=== PATIENT | male | born 1940 | race Caucasian/White ===

== ENCOUNTER 2017-06-02 07:58 | Inpatient (IN) | payer BC, OTHER ==
[~2017-06-02] VITALS: Ht 172.7 cm; Wt 126.6 kg
[2017-06-02 08:01] VITALS: BP 139/98
[2017-06-02] MEDS ORDERED: MECL-322 PO (08:12)
[2017-06-02] MEDS ORDERED: OMEP20TC12 PO (08:12)
[2017-06-02] MEDS ORDERED: TAMS0.4C96 PO (08:12)
[2017-06-02] MEDS ORDERED: AMLO-27 PO (08:12)
[2017-06-02] MEDS ORDERED: LISI40TA4 PO (08:12)
[2017-06-02] MEDS ORDERED: ATOR40TA PO (08:12)
[2017-06-02] MEDS ORDERED: METF500T PO ×2 (08:12→15:28)
[2017-06-02] MEDS ORDERED: GLIP5TAB4 PO (08:12)
[2017-06-02] MEDS ORDERED: LEVE1000 PO (08:12)
--- NOTE | 2017-06-02 08:18 | NUR ---
Patient wheelchair assisted to bed 10 at this time.
--- NOTE | 2017-06-02 08:20 | NUR ---
76m bib nephew with c/o weakness to bl legs and "disorientation" that started this am; Per nephew, pt was found on fall this am, altered. Now per mukund, pt is at neuro baseline. 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 Pt is aox4, with unsteady gait. Pt denies any cp, sob, or pain at this time. RR are even and tachypneic. Pt also reports of fever, congestion, with productive cough x 4-5 days. nad at this time. pulse ox=97% on ra. NSR on CM. Pt positioned for comfort, bed down. Will continue to monitor.
[2017-06-02] MEDS ORDERED: NACL 0.9% 1,000 ML IV SCH (08:38)
[2017-06-02 09:58] LABS: BASOPHILS # (AUTO) 0.1 K/uL (0.00-0.22); BASOPHILS % (AUTO) 1.4 % (0.0-2.0); EOSINOPHILS # (AUTO) 0.1 K/uL (0-0.4); EOSINOPHILS % (AUTO) 0.8 % (0.0-4.0); HEMATOCRIT 46.9 % (36-52); HEMOGLOBIN 15.9 g/dL (12.0-18.0); LYMPHOCYTES # (AUTO) 0.4 K/uL (2.0-11.5); MEAN CORPUSCULAR HEMOGLOBIN 30 pg (27-31); MEAN CORPUSCULAR HGB CONC 34 g/dL (33-37); MEAN CORPUSCULAR VOLUME 90 fL (80-94); MONOCYTES # (AUTO) 1.5 K/uL (0.8-1.0); MONOCYTES % (AUTO) 17.3 % (1.7-9.3); NEUTROPHILS # (AUTO) 6.7 K/uL (1.8-7.7); NEUTROPHILS % (AUTO) 75.5 % (42.2-75.2); PLATELET COUNT (AUTO) 182 K/uL (140-450); RED BLOOD CELL COUNT(AUTO) 5.21 MIL/uL (4.20-6.10); RED CELL DISTRIBUTION WIDTH 13.3 % (11.6-13.7)
--- NOTE | 2017-06-02 10:01 | NUR ---
pt laying supine supine in [facility] with no complaints. pt denies any cp, sob, or pain at this time. nad. vs. will continue to monitor.
[2017-06-02 10:13] LABS: ANION GAP 14.8 (8-16); CHLORIDE 103 mmol/L (98-107); CREATININE 1.3 mg/dL (0.7-1.3); GLUCOSE 156 mg/dL (74-106); POTASSIUM 3.8 mmol/L (3.5-5.1); SODIUM SERUM 138 mmol/L (136-145); UREA NITROGEN, BLOOD 33 mg/dL (7-18)
[2017-06-02 10:15] LABS: WHITE BLOOD COUNT (AUTO) 8.8 K/uL (4.8-10.8)
[2017-06-02 10:19] LABS: ALBUMIN 3.6 g/dL (3.4-5.0); ASPARTATE AMINOTRANSFERASE 50 U/L (15-37); TOTAL BILIRUBIN 0.8 mg/dL (0.0-1.0)
[2017-06-02 10:20] LABS: PROTHROMBIN TIME 12.1 secs (10.8-13.4)
[2017-06-02] MEDS ORDERED: ALBUTEROL 0.083% 2.5 MG/3 ML NEBU INH ONE (11:05)
[2017-06-02] MEDS ORDERED: methylPREDNISolone SS 125 MG/2 ML VIAL IVP ONE (11:05)
[2017-06-02] MEDS ORDERED: IPRATROPIUM 0.02% 0.5 MG/2.5 ML NEBU INH ONE (11:05)
[2017-06-02 11:23] LABS: APPEARANCE,URINE CLEAR (CLEAR); BILIRUBIN,URINE 1+ (NEGATIVE); BLOOD, URINE 3+ (NEGATIVE); COLOR,URINE YELLOW (YELLOW); LEUKOCYTE ESTERASE ,URINE NEGATIVE (NEGATIVE); NITRITE, URINE NEGATIVE (NEGATIVE); PH,URINE 5.5 (5.0-9.0); UGLUCOSE NEGATIVE (NEGATIVE)
[2017-06-02 11:38] LABS: RBC,URINE NONE SEEN /HPF (0-5); WBC,URINE 0-5 (RARE) /HPF (0-5)
[2017-06-02] MEDS ORDERED: OSELTAMIVIR PHOSPHATE 75 MG CAP PO ONE (11:50)
[2017-06-02] MEDS ORDERED: ASPIRIN 81 MG TAB.CHEW PO ONE (12:00)
--- NOTE | 2017-06-02 12:02 | NUR ---
Pt is laying to left sdie with eyes closed. VSS. NAD. Will contine to monitor.
--- NOTE | 2017-06-02 14:02 | NUR ---
pt resting with eyes closed, laying supine in gurney. Awaiting admission bed. NAD. Pt denies any cp, sob, or pain at this time. Will continue to monitor.
[2017-06-02] MEDS ORDERED: HYDROcodone/APAP 7.5/325 MG 1 TAB PO PRN (14:10)
[2017-06-02] MEDS ORDERED: ONDANSETRON 4 MG/2 ML VIAL IVP PRN (14:10)
[2017-06-02] MEDS ORDERED: ACETAMINOPHEN 325 MG TAB PO PRN (14:10)
[2017-06-02] MEDS ORDERED: ALBUTEROL SULFATE/IPRATROPIU 3 ML SOL IH PRN (14:10)
[2017-06-02 14:58] VITALS: BP 134/65
--- NOTE | 2017-06-02 14:58 | NUR ---
PATIENT ADMITTED TO THE UNIT FROM EMERGENCY ROOM. DR. GOINS IN THE ROOM EVALUATING PATIENT. PT ALERT, AWAKE, AND ORIENTED BUT FORGETFUL. PT ON 2L O2. NO SOB NOTED. NO S/S OF DISTRESS NOTED AT THIS TIME. NO COMPLAINTS OF PAIN AT THIS TIME. IV SITE NOTED ON THE LEFT AC INTACT AND ASYMPTOMATIC. SMALL BLISTERS NOTED ALL OVER THE BODY BUT SKIN IS INTACT. GENERALIZED WEAKNESS NOTED AND UNABLE TO AMBULATE AT THIS TIME. FACIAL DROOP NOTED. PATIENT PUT ON TELE MONITORING. BED LOWERED AND CALL LIGHT WITHIN REACH. WILL CONTINUE TO MONITOR PATIENT.
--- NOTE | 2017-06-02 15:00 | NUR ---
Patient will be admitted to care of [facility]. Admited to Tele. Will go to room 117. Belongings list completed. Bedside report to Jenniffer NGUYEN.
[2017-06-02] MEDS ORDERED: DEXTROSE 50% 50 ML SYR IVP PRN (15:10)
[2017-06-02] MEDS ORDERED: MECLIZINE 25 MG TAB PO PRN (15:15)
[2017-06-02] MEDS ORDERED: FINA5TAB1 PO (15:28)
[2017-06-02 15:53] LABS: CHOL/HDL RATIO 2.2 (1-4.5); FREE T4 (FREE THYROXINE) 0.94 ng/dL (0.76-1.46); PHOSPHORUS 2.6 mg/dL (2.5-4.9); THYROID STIMULATING HORMONE 2.68 uIU/mL (0.34-3.74)
[2017-06-02 16:05] LABS: BARBITURATE, URINE NEG. ng/ml (NEG <=200); BENZODIAZEPINE, URINE NEG. ng/mL (NEG <=200); CANNABINOID, URINE NEG. ng/mL (NEG <=50); COCAINE, URINE NEG. ng/mL (NEG <=300); OPIATE, URINE NEG. ng/mL (NEG <=2000); PHENCYCLIDINE SCREEN,URINE NEG. ng/mL (NEG <=25)
[2017-06-02] MEDS: BLOOD GLUCOSE MONITORING 1 DEV DEV FS SCH ×2 (16:30→20:23)
[2017-06-02] MEDS: PIPER/TAZO 3.375GM/D5W PREMIX 50 ML IV SCH (18:01)
[2017-06-02] MEDS: NACL 0.9% 1,000 ML IV SCH ×2 (18:44→21:39)
[2017-06-02] MEDS: INSULIN LISPRO SLIDING SCALE 100 UNITS/ML VIAL SUBQ PRN ×2 (18:44→20:35)
--- NOTE | 2017-06-02 19:30 | NUR ---
PATIENT REPORT GIVEN AT BEDSIDE. PATIENT ENDORSED IN STABLE CONDITION
--- NOTE | 2017-06-02 19:41 | NUR ---
RECEIVED REPORT FROM DAY SHIFT NURSE, PATIENT RESTING IN BED, NO S/S OF DISTRESS NOTED, LT SIDE FACIAL DROOP NOTED, PATIENT SAID IT WAS DUE TO THE CVA BEFORE. RESPIRATION EVEN AND UNLABORED, IV PATENT AND INTACT, INFUSING NS AT 125ML/HR, INFORMED PATIENT THAT SPUTUM NEED TO BE COLLECTED, PATIENT VERBALIZED UNDERSTANDING. CALL LIGHT WITHIN REACH, SAFETY MEASURE ENSURED, WILL CONTINUE TO MONITOR.
[2017-06-02] MEDS: BUDESONIDE 0.5 MG/2 ML NEBU INH SCH (19:48)
[2017-06-02] MEDS: ALBUTEROL SULFATE/IPRATROPIU 3 ML SOL IH SCH (19:48)
[2017-06-02 20:00] VITALS: BP 140/85
[2017-06-02] MEDS: DOCUSATE SODIUM 100 MG GELCAP PO SCH (20:31)
[2017-06-02] MEDS: TAMSULOSIN 0.4 MG CAP PO SCH (20:31)
[2017-06-02] MEDS: OSELTAMIVIR PHOSPHATE 75 MG CAP PO SCH (20:32)
[2017-06-02] MEDS: LISINOPRIL 20 MG TAB PO SCH (20:32)
[2017-06-02] MEDS: levETIRAcetam 500 MG TAB PO SCH (20:32)
--- NOTE | 2017-06-02 20:48 | NUR ---
DUE MEDICATION GIVEN, PATIENT TOLERATED WELL. NO S/S OF DISTRESS NOTED, RESPIRATION EVEN AND UNLABORED, CALL LIGHT WITHIN REACH, SAFETY MEASURE ENSURED, WILL CONTINUE TO MONITOR.
--- NOTE | 2017-06-02 22:04 | NUR ---
PATIENT RESTING IN BED, NO S/S OF DISTRESS NOTED, RESPIRATION EVEN AND UNLABORED, ON O2 NC 2L, CALL LIGHT WITHIN REACH, SAFETY MEASURE ENSURED ,WILL CONTINUE TO MONITOR.
[2017-06-03] VITALS: BP 123/64
[2017-06-03] MEDS: PIPER/TAZO 3.375GM/D5W PREMIX 50 ML IV SCH ×4 (00:06→17:10)
--- NOTE | 2017-06-03 00:21 | NUR ---
NO CHANGE IN CONDITION, PATIENT VOID X1, NO S/S OF DISTRESS NOTED, RESPIRATION EVEN AND UNLABORED, VITAL SIGNS STABLE. DUE MEDICATION ZOSYN STARTED, PATIENT TOLERATED WELL. CALL LIGHT WITHIN REACH, SAFETY MEASURE ENSURED, WILL CONTINUE TO MONITOR.
--- NOTE | 2017-06-03 00:53 | NUR ---
BP 181/85, HR 68, MADE DR. MICHEL AWARE, NO ORDER RECEIVED AT THIS TIME. CALL LIGHT WITHIN REACH, SAFETY MEASURE ENSURED, WILL CONTINUE TO MONITOR. Addendum: 06/03/17 at 0055 by Sav Roman RN WRONG PATIENT, DISREGARD THE NOTES.
--- NOTE | 2017-06-03 02:34 | NUR ---
IV INFILTRATED, IV CATHETER TAKEN OUT, TIP INTACT, NO ACTIVE BLEEDING AT THE IV SITE, NEW IV STARTED ON LT HAND 22G, PATIENT TOLERATED WELL. CALL LIGHT WITHIN REACH, SAFETY MEASURE ENSURED, WILL CONTINUE TO MONITOR.
--- NOTE | 2017-06-03 03:03 | NUR ---
PATIENT IS INFORMED OF THE SPUTUM TEST, BUT NO SPUTUM COLLECTED YET.
[2017-06-03 03:44] LABS: BASOPHILS # (AUTO) 0.2 K/uL (0.00-0.22); BASOPHILS % (AUTO) 2.3 % (0.0-2.0); EOSINOPHILS % (AUTO) 0.2 % (0.0-4.0); HEMATOCRIT 44.5 % (36-52); HEMOGLOBIN 14.5 g/dL (12.0-18.0); LYMPHOCYTES # (AUTO) 0.5 K/uL (2.0-11.5); MEAN CORPUSCULAR HEMOGLOBIN 30 pg (27-31); MEAN CORPUSCULAR HGB CONC 33 g/dL (33-37); MEAN CORPUSCULAR VOLUME 91 fL (80-94); MONOCYTES # (AUTO) 0.5 K/uL (0.8-1.0); MONOCYTES % (AUTO) 5.5 % (1.7-9.3); NEUTROPHILS # (AUTO) 7.1 K/uL (1.8-7.7); NEUTROPHILS % (AUTO) 85.5 % (42.2-75.2); PLATELET COUNT (AUTO) 178 K/uL (140-450); WHITE BLOOD COUNT (AUTO) 8.3 K/uL (4.8-10.8)
[2017-06-03 03:56] LABS: ANION GAP 13.2 (8-16); CHLORIDE 102 mmol/L (98-107); CREATININE 1.1 mg/dL (0.7-1.3); GLUCOSE 143 mg/dL (74-106); POTASSIUM 4.2 mmol/L (3.5-5.1); SODIUM SERUM 137 mmol/L (136-145); UREA NITROGEN, BLOOD 29 mg/dL (7-18)
[2017-06-03 03:59] LABS: PHOSPHORUS 3.2 mg/dL (2.5-4.9)
[2017-06-03 04:01] VITALS: BP 125/70
[2017-06-03 04:35] LABS: LYMPHOCYTES % (AUTO) 6.5 % (20.5-51.1)
--- NOTE | 2017-06-03 04:58 | NUR ---
NO CHANGE IN CONDITION, PATIENT RESTING IN BED, RESPIRATION EVEN AND UNLABORED, DUE ZOSYN STARTED, PATIENT TOLERATED WELL, CALL LIGHT WITHIN REACH, SAFETY MEASURE ENSURED, WILL CONTINUE TO MONITOR.
[2017-06-03] MEDS: PANTOPRAZOLE 40 MG TABEC PO SCH (05:34)
[2017-06-03] MEDS: NACL 0.9% 1,000 ML IV SCH ×3 (05:35→21:24)
[2017-06-03] MEDS: BLOOD GLUCOSE MONITORING 1 DEV DEV FS SCH ×4 (06:31→21:33)
--- NOTE | 2017-06-03 06:52 | NUR ---
PAINT TECHNICIAN INFORMED ME THAT PATIENT HR 44, UPON ASSESSMENT, PATIENT WAS SLEEPING, BUT EASY TO AROUSE, STATED," I FEEL OKAY." PATIENT DENIES DIZZINESS OR ANY DISCOMFORT. RESPIRATION EVEN AND UNLABORED, CALL LIGHT WITHIN REACH, SAFETY MEASURE ENSURED, WILL CONTINUE TO MONITOR.
--- NOTE | 2017-06-03 06:55 | NUR ---
ELECTRICAL MAINTENANCE WORKER SHOWING HR 69 AT THIS TIME.
[2017-06-03] MEDS: ALBUTEROL SULFATE/IPRATROPIU 3 ML SOL IH SCH ×3 (07:00→19:41)
--- NOTE | 2017-06-03 07:25 | NUR ---
REPORT RECEIVED FROM PRIVATE BRANCH EXCHANGE SERVICE ADVISOR NURSE, PT AWAKE ALERT, RESP EVEN UNLABORED ON ROOM AIR, SKIN WARM DRY COLOR WNL, PT SITTING UP AT SIDE OF BED, ACCIDENTALLY PULLED IV OUT, 22G CATH TIP INTACT, LYING ON BED, BLEEDING CONTROLLED, DENIES PAIN OR DISCOMFORT, PLAN OF CARE REVIEWED, NO IMMEDIATE NEEDS IDENTIFIED, SZ PADS IN PLACE, CALL KRISHNAN WITHIN REACH, SIDE RAILS UP, BED LOCKED IN LOW POSITION WILL CONTINUE TO MONITOR.
[2017-06-03] MEDS: BUDESONIDE 0.5 MG/2 ML NEBU INH SCH ×2 (07:30→07:32)
--- NOTE | 2017-06-03 07:33 | NUR ---
PATIENT PULL OUT IV, NO ACTIVE BLEEDING NOTED AT THE IV SITE, NEW IV STARTED ON LT FOREARM 22G, PATIENT TOLERATED WELL. ENDORSED PLAN OF CARE TO DAY SHIFT NURSE. PATIENT IS IN STABLE CONDITION.
[2017-06-03 08:00] VITALS: BP 125/58
[2017-06-03] MEDS ORDERED: metFORMIN 500 MG TAB PO SCH (09:00)
[2017-06-03] MEDS: FINASTERIDE 5 MG TAB PO SCH (09:34)
[2017-06-03] MEDS: DOCUSATE SODIUM 100 MG GELCAP PO SCH ×2 (09:34→21:23)
[2017-06-03] MEDS: methylPREDNISolone SS 125 MG/2 ML VIAL IVP SCH ×2 (09:34→21:23)
[2017-06-03] MEDS: ATORVASTATIN 20 MG TAB PO SCH (09:34)
[2017-06-03] MEDS: levETIRAcetam 500 MG TAB PO SCH ×2 (09:35→21:24)
[2017-06-03] MEDS: LISINOPRIL 20 MG TAB PO SCH ×2 (09:35→21:24)
[2017-06-03] MEDS: amLODIPine 5 MG TAB PO SCH (09:35)
[2017-06-03] MEDS: OSELTAMIVIR PHOSPHATE 75 MG CAP PO SCH ×2 (09:36→21:24)
[2017-06-03] MEDS: glipiZIDE 5 MG TAB PO SCH (09:36)
--- NOTE | 2017-06-03 09:43 | NUR ---
AM MEDS GIVEN, PT BARBI WELL, PT DENIES PAIN OR DISCOMFORT, CALL KRISHNAN WITHIN REACH, SIDE RAILS UP, WILL CONTINUE TO MONTIOR, LACTOBACILLUS NOT IN PIXIS, PHARMACY MADE AWARE.
--- NOTE | 2017-06-03 10:00 | NUR ---
AM MEDS GIVEN PER GT, PT BARBI WELL, TRACH TO VENT, ALARMS ON, GARCIA DRAINING WELL, IVF INFUSING WELL, SITE CLEAR, WILL CONTINUE TO MONITOR. Addendum: 06/03/17 at 1148 by Lexy Dye RN PLEASE DISREGARD ABOVE NOTE, WRONG PATIENT.
--- NOTE | 2017-06-03 10:46 | NUR ---
PATIENT HAS BEEN SCREENED AND CATEGORIZED HIGH NUTRITION RISK. PATIENT WILL BE SEEN WITHIN 1-2 DAYS OF ADMISSION. 06/03/17 - 06/04/[address]
[2017-06-03 12:00] VITALS: BP 128/68
--- NOTE | 2017-06-03 12:04 | NUR ---
FAXED INITIAL REVIEW TO [facility] [phone] PHONE MALIK [phone]. SPOKE WITH MALIK AT [facility] THIS AM, HE IS AWARE OF THE ADMIT.
--- NOTE | 2017-06-03 12:20 | NUR ---
PT UP TO CHAIR WITH PHYSICAL THERAPY, EATING LUNCH, CALL KRISHNAN WITHIN REACH, WILL CONTINUE TO MONITOR.
[2017-06-03] MEDS: LACTOBACILLUS RHAMNOSUS GG 1 EACH CAP PO SCH (12:21)
--- NOTE | 2017-06-03 13:17 | NUR ---
I attempted to contact Patient's nephew Jules Burns at to discuss, confirm and gather Patients information and services needed upon discharge. Mr. Burns Was not available and did not respond. I left him a voicemail MSG with my contact inf./requesting a call back.
--- NOTE | 2017-06-03 13:20 | NUR ---
PT WAS SITTING IN CHAIR HE REFUSED BREATHING TX SAID GO AWAY NO SIGNS OF DISTRESS NOTED AT THIS TIME
--- NOTE | 2017-06-03 15:31 | NUR ---
06/03/17 RD INITIAL ASSESSMENT COMPLETED PLEASE REFER TO NUTRITION ASSESSMENT UNDER CARE ACTIVITY FOR ESTIMATED NUTRITIONAL NEEDS. [facility]. [facility] 2. RD PROVIDED PT WITH HEALTHY EATING EDUCATION AND DM DIET EDUCATION 3. RD TO FOLLOW-UP 5-7 DAYS, LOW RISK [address]REW RICE [address]
[2017-06-03 15:57] VITALS: BP 132/75
[2017-06-03] MEDS: INSULIN LISPRO SLIDING SCALE 100 UNITS/ML VIAL SUBQ PRN ×2 (16:43→21:36)
--- NOTE | 2017-06-03 16:48 | NUR ---
PT SITTING UP AT SIDE OF BED USING URINAL, SLIGHT WZ TO RIGTH LOWER LOBE, GOOD AERATION WITH AUSCULTATION, PT DENIES FEELING SOB, O2 SAT 97% ON RA, PT DENIES NEED FOR NEB TREATMENT, WILL CONTINUE TO MONITOR.
--- NOTE | 2017-06-03 16:50 | NUR ---
INSULIN 2U GIVEN FOR BS 176.
--- NOTE | 2017-06-03 17:13 | NUR ---
IV ANTIBIOTIC STARTED, IV SITE CLEAR, PT DENIES ANY IMMEDIATE NEEDS, WILL CONTINUE TO MONITOR.
--- NOTE | 2017-06-03 19:17 | NUR ---
REPORT GIVEN TO BRICK PAVING CHECKER NURSE MARIA DEL CARMEN YEPEZ IN STABLE CONDITION.
[2017-06-03 20:00] VITALS: BP 132/75
[2017-06-03] MEDS: TAMSULOSIN 0.4 MG CAP PO SCH (21:23)
[2017-06-04] VITALS: BP 126/65
[2017-06-04] MEDS: PIPER/TAZO 3.375GM/D5W PREMIX 50 ML IV SCH ×4 (00:36→18:16)
--- NOTE | 2017-06-04 00:40 | NUR ---
DUE ZOSYN STARTED, PATIENT TOLERATED WELL. VITAL SIGNS STABLE, NO S/S OF DISTRESS NOTED, WILL CONTINUE TO MONITOR.
[2017-06-04] MEDS: PANTOPRAZOLE 40 MG TABEC PO SCH (06:30)
[2017-06-04] MEDS: BLOOD GLUCOSE MONITORING 1 DEV DEV FS SCH ×4 (07:30→21:00)
[2017-06-04] MEDS: ALBUTEROL SULFATE/IPRATROPIU 3 ML SOL IH SCH ×3 (07:32→19:00)
[2017-06-04] MEDS: BUDESONIDE 0.5 MG/2 ML NEBU INH SCH ×2 (07:32→19:24)
[2017-06-04] MEDS: glipiZIDE 5 MG TAB PO SCH (09:00)
[2017-06-04] MEDS: FINASTERIDE 5 MG TAB PO SCH (09:00)
[2017-06-04] MEDS: ECOTRIN 81 MG TABEC PO SCH (09:00)
[2017-06-04] MEDS: LACTOBACILLUS RHAMNOSUS GG 1 EACH CAP PO SCH (09:00)
[2017-06-04] MEDS: methylPREDNISolone SS 40 MG/ML VIAL IVP SCH ×2 (09:00→22:25)
[2017-06-04] MEDS: amLODIPine 5 MG TAB PO SCH (09:00)
[2017-06-04] MEDS: ATORVASTATIN 20 MG TAB PO SCH (09:00)
[2017-06-04] MEDS: DOCUSATE SODIUM 100 MG GELCAP PO SCH ×2 (09:00→21:00)
[2017-06-04] MEDS: levETIRAcetam 500 MG TAB PO SCH ×2 (09:00→21:28)
[2017-06-04] MEDS: LISINOPRIL 20 MG TAB PO SCH ×2 (09:00→21:00)
[2017-06-04] MEDS: OSELTAMIVIR PHOSPHATE 75 MG CAP PO SCH ×2 (09:00→21:29)
[2017-06-04 10:54] LABS: ANION GAP 13.9 (8-16); CARBON DIOXIDE 25.5 mmol/L (21-32); CHLORIDE 104 mmol/L (98-107); CREATININE 0.9 mg/dL (0.7-1.3); GLUCOSE 177 mg/dL (74-106); POTASSIUM 5.4 mmol/L (3.5-5.1); SODIUM SERUM 138 mmol/L (136-145); UREA NITROGEN, BLOOD 20 mg/dL (7-18)
--- NOTE | 2017-06-04 12:00 | NUR ---
RECEIVED REPORT FROM WENDY JONES FOR CONTINUITY OF PATIENT CARE. PATIENT IN STABLE CONDITION. WILL CONTINUE TO MONITOR.
[2017-06-04 13:21] LABS: CORRECTED WHITE BLOOD COUNT 9.5 K/uL (4.5-11.0); HEMATOCRIT 46.9 % (36-52); HEMOGLOBIN 15.2 g/dL (12.0-18.0); RED BLOOD CELL COUNT(AUTO) 5.11 MIL/uL (4.20-6.10); WHITE BLOOD COUNT (AUTO) 9.5 K/uL (4.8-10.8)
[2017-06-04 13:22] LABS: MEAN CORPUSCULAR HEMOGLOBIN 30 pg (27-31); MEAN CORPUSCULAR HGB CONC 32 g/dL (33-37); MEAN CORPUSCULAR VOLUME 92 fL (80-94); MONOCYTES % (AUTO) 5.6 % (1.7-9.3); NEUTROPHILS % (AUTO) 85.3 % (42.2-75.2); PLATELET COUNT (AUTO) 189 K/uL (140-450); RED CELL DISTRIBUTION WIDTH 13.1 % (11.6-13.7)
[2017-06-04 13:23] LABS: BASOPHILS # (AUTO) 0.2 K/uL (0.00-0.22); BASOPHILS % (AUTO) 2.1 % (0.0-2.0); EOSINOPHILS # (AUTO) 0.1 K/uL (0-0.4); LYMPHOCYTES # (AUTO) 0.6 K/uL (2.0-11.5); MONOCYTES # (AUTO) 0.5 K/uL (0.8-1.0); NEUTROPHILS # (AUTO) 8.1 K/uL (1.8-7.7)
[2017-06-04] MEDS: INSULIN LISPRO SLIDING SCALE 100 UNITS/ML VIAL SUBQ PRN (13:29)
[2017-06-04] MEDS: NACL 0.9% 1,000 ML IV SCH ×2 (14:09→15:00)
--- NOTE | 2017-06-04 15:21 | NUR ---
CHANGED IVF FLUID RATE TO 30 ML/HR PER MD ORDERS. GAVE REPORT TO WENDY RICK FOR CONTINUITY OF CARE. PATIENT IN STABLE CONDITION.
[2017-06-04] MEDS ORDERED: SODIUM POLYSTYRENE 15 GM/60 ML UDBTL PO SCH (15:30)
[2017-06-04] MEDS ORDERED: SODIUM POLYSTYRENE 15 GM/60 ML UDBTL ONE (15:37)
[2017-06-04 16:00] VITALS: BP 133/71
[2017-06-04] MEDS ORDERED: metFORMIN 500 MG TAB ONE (18:13)
[2017-06-04] MEDS: metFORMIN 500 MG TAB PO SCH (18:15)
[2017-06-04] MEDS ORDERED: BUDESONIDE 0.5 MG/2 ML NEBU INH ONE (18:56)
[2017-06-04] MEDS ORDERED: ALBUTEROL SULFATE/IPRATROPIU 3 ML SOL IH ONE (18:57)
--- NOTE | 2017-06-04 19:25 | NUR ---
ENDORSED PT TO ROLL ICER NURSE ULI AT BEDSIDE FOR CONTINUITY OF CARE. PT IN STABLE CONDITION.
--- NOTE | 2017-06-04 19:26 | NUR ---
PATIENT REPORT RECEIVED FROM MORNING NURSE AT BEDSIDE. PATIENT IS AWAKE AND ALERT. NO SIGNS AND SYMPTOMS OF DISTRESS NOTED. NO COMPLAINTS OF PAIN AT THIS TIME. IV SITE NOTED ON RIGHT FOREARM, IVF INFUSING WELL. PLAN OF CARE DISCUSSED WITH PATIENT. PATIENT VERBALIZED UNDERSTANDING. BED IN LOWEST POSITION, SIDE RAILS UP AND CALL LIGHT WITHIN REACH. WILL CONTINUE TO MONITOR.
[2017-06-04] MEDS ORDERED: LOPERAMIDE 2 MG CAP PO PRN (20:45)
--- NOTE | 2017-06-04 21:00 | NUR ---
PATIENT HAD [address] MICHEL NOTIFIED.
[2017-06-04] MEDS ORDERED: methylPREDNISolone SS 40 MG/ML VIAL ONE (21:07)
[2017-06-04] MEDS ORDERED: levETIRAcetam 500 MG TAB ONE (21:08)
[2017-06-04] MEDS ORDERED: TAMSULOSIN 0.4 MG CAP ONE (21:08)
[2017-06-04] MEDS ORDERED: QUEtiapine FUMARATE 25 MG TAB ONE (21:09)
[2017-06-04] MEDS ORDERED: OSELTAMIVIR PHOSPHATE 75 MG CAP ONE (21:09)
[2017-06-04] MEDS ORDERED: LISINOPRIL 20 MG TAB ONE (21:10)
[2017-06-04] MEDS ORDERED: LOPERAMIDE 2 MG CAP PO ONE (21:11)
[2017-06-04] MEDS: TAMSULOSIN 0.4 MG CAP PO SCH (21:28)
[2017-06-04] MEDS: QUEtiapine FUMARATE 25 MG TAB PO SCH (21:30)
[2017-06-05] VITALS: BP 146/73
--- NOTE | 2017-06-05 | NUR ---
CHECKED ON PATIENT. PATIENT IS ASLEEP. NO SIGNS AND SYMPTOMS OF DISTRESS NOTED. BREATHING EVEN AND UNLABORED. WILL CONTINUE TO MONITOR.
--- NOTE | 2017-06-05 02:00 | NUR ---
CHECKED ON PATIENT. PATIENT SITTING NEAR THE SIDE OF THE BED. ASKED HIM IF HE WAS OK AND IF HE NEEDED ANYTHING, BUT HE SAID NO. THEN HE MUMBLED SOMETHING AND LOOKED A LITTLE CONFUSED. REORIENTED HIM TO TIME AND PLACE.
--- NOTE | 2017-06-05 04:00 | NUR ---
CHECKED ON PATIENT. PATIENT IS ASLEEP. NO SIGNS AND SYMPTOMS OF DISTRESS NOTED. BREATHING EVEN AND UNLABORED. WILL CONTINUE TO MONITOR.
[2017-06-05] MEDS ORDERED: PANTOPRAZOLE 40 MG TABEC PO ONE (05:37)
[2017-06-05] MEDS: PIPER/TAZO 3.375GM/D5W PREMIX 50 ML IV SCH ×4 (06:13→17:06)
[2017-06-05] MEDS: PANTOPRAZOLE 40 MG TABEC PO SCH (06:16)
[2017-06-05] MEDS: BLOOD GLUCOSE MONITORING 1 DEV DEV FS SCH ×3 (06:33→17:02)
[2017-06-05] MEDS ORDERED: BUDESONIDE 0.5 MG/2 ML NEBU INH ONE (07:02)
[2017-06-05] MEDS ORDERED: ALBUTEROL SULFATE/IPRATROPIU 3 ML SOL IH ONE (07:02)
--- NOTE | 2017-06-05 07:35 | NUR ---
PATIENT REPORT GIVEN TO MORNING NURSE AT BEDSIDE. PATIENT IS IN STABLE CONDITION
--- NOTE | 2017-06-05 07:40 | NUR ---
RECEIVED PATIENT REPORT AT BEDSIDE FROM NIGHT NURSE. PATIENT IS AAOX3 AND SHOWS NO S/S OF ACUTE DISTRESS ON ROOM AIR. PATIENT SKIN IS INTACT. IV NOTED ON THE R FA WITH IVF'S INFUSING WELL WITH NO SIGNS OF INFILTRATION. PATIENT DENIES PAIN. BED IS IN LOW POSITION WITH CALL LIGHT WITHIN REACH.
[2017-06-05 07:49] LABS: BASOPHILS # (AUTO) 0.1 K/uL (0.00-0.22); BASOPHILS % (AUTO) 1.1 % (0.0-2.0); HEMATOCRIT 49.6 % (36-52); HEMOGLOBIN 16.4 g/dL (12.0-18.0); LYMPHOCYTES # (AUTO) 0.8 K/uL (2.0-11.5); LYMPHOCYTES % (AUTO) 8.8 % (20.5-51.1); MEAN CORPUSCULAR HEMOGLOBIN 30 pg (27-31); MEAN CORPUSCULAR HGB CONC 33 g/dL (33-37); MEAN CORPUSCULAR VOLUME 92 fL (80-94); MONOCYTES # (AUTO) 0.6 K/uL (0.8-1.0); NEUTROPHILS # (AUTO) 7.1 K/uL (1.8-7.7); NEUTROPHILS % (AUTO) 83.1 % (42.2-75.2); PLATELET COUNT (AUTO) 195 K/uL (140-450); RED BLOOD CELL COUNT(AUTO) 5.42 MIL/uL (4.20-6.10); RED CELL DISTRIBUTION WIDTH 12.9 % (11.6-13.7); WHITE BLOOD COUNT (AUTO) 8.6 K/uL (4.8-10.8)
[2017-06-05 07:55] LABS: ANION GAP 10.1 (8-16); CARBON DIOXIDE 30.3 mmol/L (21-32); CHLORIDE 103 mmol/L (98-107); CREATININE 1.1 mg/dL (0.7-1.3); GLUCOSE 149 mg/dL (74-106); POTASSIUM 4.4 mmol/L (3.5-5.1); SODIUM SERUM 139 mmol/L (136-145); UREA NITROGEN, BLOOD 19 mg/dL (7-18)
[2017-06-05 08:00] VITALS: BP 129/54
[2017-06-05 08:00] LABS: MAGNESIUM 2.2 mg/dL (1.8-2.4)
--- NOTE | 2017-06-05 08:05 | NUR ---
AWAKE AND ALERT PATIENT WITH BREAKFAST TRAY AT THIS TIME NO SOB NOTED BARREL ASSEMBLER HELPER TO ATTEMPT HHN THERAPY AT A LATER TIME
[2017-06-05] MEDS: BUDESONIDE 0.5 MG/2 ML NEBU INH SCH (08:55)
[2017-06-05] MEDS: ALBUTEROL SULFATE/IPRATROPIU 3 ML SOL IH SCH ×2 (08:55→13:39)
[2017-06-05] MEDS ORDERED: methylPREDNISolone SS 40 MG/ML VIAL IVP SCH (09:00)
[2017-06-05] MEDS: metFORMIN 500 MG TAB PO SCH (09:06)
[2017-06-05] MEDS: glipiZIDE 5 MG TAB PO SCH (09:08)
[2017-06-05] MEDS: DOCUSATE SODIUM 100 MG GELCAP PO SCH (09:08)
[2017-06-05] MEDS: amLODIPine 5 MG TAB PO SCH (09:09)
[2017-06-05] MEDS: levETIRAcetam 500 MG TAB PO SCH (09:09)
[2017-06-05] MEDS: ATORVASTATIN 20 MG TAB PO SCH (09:09)
[2017-06-05] MEDS: QUEtiapine FUMARATE 25 MG TAB PO SCH (09:10)
[2017-06-05] MEDS: ECOTRIN 81 MG TABEC PO SCH (09:10)
[2017-06-05] MEDS: LACTOBACILLUS RHAMNOSUS GG 1 EACH CAP PO SCH (09:10)
[2017-06-05] MEDS: FINASTERIDE 5 MG TAB PO SCH (09:10)
[2017-06-05] MEDS: OSELTAMIVIR PHOSPHATE 75 MG CAP PO SCH (09:11)
[2017-06-05] MEDS: LISINOPRIL 20 MG TAB PO SCH (09:11)
--- NOTE | 2017-06-05 09:19 | NUR ---
ADMINISTERED SCHEDULED MEDICATIONS. PATIENT SWALLOWED WITHOUT DIFFICULTY. PATIENT DENIES PAIN, ALL NEEDS MET AT THIS TIME. BED IN LOW POSITION WITH CALL LIGHT WITHIN REACH.
--- NOTE | 2017-06-05 11:47 | NUR ---
ADMINISTERED SCHEDULED MEDICATIONS. PATIENT IV ABX INFUSING WELL. BED IN LOW POSITION AND CALL LIGHT WITHIN REACH.
--- NOTE | 2017-06-05 13:00 | NUR ---
TIANNA SEARS LM [facility] (C: [phone]) Addendum: 06/05/17 at 1426 by Mao Fajardo RN 2ND MESSAGE DICK GAN Addendum: 06/05/17 at 1447 by Mao Fajardo RN UNA GAN; MADE AWARE THAT PATIENT WILL BE GOING HOME AND WILL BE NEEDING HOME HEALTH FOR PHYSICAL THERAPY. WILL BE SETTING UP FOR PATIENT.
--- NOTE | 2017-06-05 13:40 | NUR ---
AWAKE AND ALERT NO SOB NOTED EDUCATION PROVIDED TO PATIENT WITH ACKNOWLEDGEMENT ON SPUTUM COLLECTION SPECIMEN CUP ON PATIENT TRAY
[2017-06-05] MEDS: NACL 0.9% 1,000 ML IV SCH (14:09)
[2017-06-05] MEDS ORDERED: AMOX1TER15 PO (14:20)
[2017-06-05] MEDS ORDERED: LACT10CA PO (14:20)
[2017-06-05] MEDS ORDERED: QUET25TA46 PO (14:20)
[2017-06-05] MEDS ORDERED: TAM75 PO (14:20)
[2017-06-05] MEDS ORDERED: PNEUMOCOCCAL VACCINE 23 MCG/0.5 ML VIAL IMVAC SCH (15:35)
[2017-06-05] MEDS ORDERED: INFLUENZA VIRUS VACCINE QUAD 0.5 ML SYR IMVAC SCH (15:35)
--- NOTE | 2017-06-05 15:53 | NUR ---
CM NOTE CONCURRENT REVIEW FAXED TO [facility] / FAX# [phone], ATTN: MALIK #[phone]
[2017-06-05 16:00] VITALS: BP 112/37
--- NOTE | 2017-06-05 16:15 | NUR ---
TIANNA NOTE PER TIANNA GAN FOR [facility], PATIENT WILL BE FOLLOWED BY [facility]. C: [phone]
[2017-06-05] MEDS: INSULIN LISPRO SLIDING SCALE 100 UNITS/ML VIAL SUBQ PRN (16:48)
[2017-06-05] MEDS ORDERED: metFORMIN 500 MG TAB PO SCH (17:00)
--- NOTE | 2017-06-05 18:44 | NUR ---
PATIENT'S NEPHEW ANNETTE CRAMER ARRIVED ON UNIT. PATIENT HAS BEEN DISCHARGED. ALL DISCHARGE PAPERWORK SIGNED. ALL QUESTIONS ANSWERED. PATIENT AND ANNETTE VERBALIZED UNDERSTANDING OF CONTINUITY OF CARE. ALL BELONGINGS IN PATIENT'S POSSESSION. IV DISCONTINUED WITH CANNULA INTACT. WRISTBANDS REMOVED. PATIENT LEFT UNIT IN WHEELCHAIR WITH NEPHEW PRESENT AT SIDE. PATIENT LEFT IN STABLE CONDITION.
== END 2017-06-05 18:45 | disposition home or self-care (01) | DRG 177 ==
LOC: MED 07:58 → MTU 14:13
PROVIDERS: ADMIT Family Medicine Sports Medicine; ATTEND Family Medicine Sports Medicine
DX: J69.0 Pneumonitis due to inhalation of food and vomit (principal); N17.0 Acute kidney failure with tubular necrosis; G90.9 Disorder of the autonomic nervous system, unspecified; E11.65 Type 2 diabetes mellitus with hyperglycemia; D68.59 Other primary thrombophilia; E66.01 Morbid (severe) obesity due to excess calories; I42.8 Other cardiomyopathies; Z68.41 Body mass index [BMI] 40.0-44.9, adult; J10.08 Influenza due to other identified influenza virus with other specified pneumonia; G40.909 Epilepsy, unspecified, not intractable, without status epilepticus; R31.9 Hematuria, unspecified; N40.0 Benign prostatic hyperplasia without lower urinary tract symptoms; I10 Essential (primary) hypertension; J45.909 Unspecified asthma, uncomplicated; K21.9 Gastro-esophageal reflux disease without esophagitis; Z79.899 Other long term (current) drug therapy; Z90.49 Acquired absence of other specified parts of digestive tract; Z71.3 Dietary counseling and surveillance; Z86.73 Personal history of transient ischemic attack (TIA), and cerebral infarction without residual deficits; Z80.42 Family history of malignant neoplasm of prostate
CPT/HCPCS: 36415; 36600; 70450; 71045; 76770; 80048; 80053; 80305; 81001; 82553; 82803; 82948; 83036; 83605; 83735; 83880; 84100; 84439; 84443; 84484; 85025; 85610; 85730; 87040; 87070; 87081; 87086; 87205; 87804; 93005; 93880; 93925; 93970; 94640; 96361; 96374; 97110; 97116; 97140; 97530; 99291; J1815; J2543; J2920; J2930; J7030; J7613; J7620; J7626; J7644; Q0092